=== PATIENT | male | born 1970 | race Caucasian/White ===

== ENCOUNTER 2017-10-24 07:19 | Emergency (ER) | payer MEDICARE ==
[~2017-10-24] VITALS: Ht 180.3 cm; Wt 70.0 kg
[2017-10-24 09:20] VITALS: BP 137/97
== END 2017-10-24 09:24 | disposition home or self-care (01) ==
LOC: ER 07:20
DX: Z20.2 Contact with and (suspected) exposure to infections with a predominantly sexual mode of transmission (principal); F17.200 Nicotine dependence, unspecified, uncomplicated; Z88.0 Allergy status to penicillin
CPT/HCPCS: 99281

== ENCOUNTER 2019-10-27 16:50 | Emergency (ER) | payer MEDICARE, MEDICAID ==
[~2019-10-27] VITALS: Ht 180.3 cm; Wt 86.4 kg
[2019-10-27 17:32] VITALS: BP 138/89
--- NOTE | 2019-10-27 17:56 | NUR ---
c/o right collar bone pain
[2019-10-27] MEDS ORDERED: LIDOcaine 5% patch TP STA (18:29)
[2019-10-27] MEDS ORDERED: ketorolac trometh inj. 60 MG/2 ML VIAL IM STA (18:29)
[2019-10-27] MEDS ORDERED: HYDR-3965 PO (18:56)
== END 2019-10-27 19:18 | disposition home or self-care (01) ==
LOC: ER 16:51
DX: R07.89 Other chest pain (principal); M25.511 Pain in right shoulder; M54.2 Cervicalgia; Z88.0 Allergy status to penicillin
CPT/HCPCS: 71045; 73030; 96372; 99283; J1885

== ENCOUNTER 2023-09-04 10:25 | Day surgery (SDC) | payer MEDICARE, MEDICAID ==
[2023-08-28 12:03] LABS: BASOPHILS % (AUTO) 0.9 % (0-1); EOSINOPHILS # (AUTO) 0.2 X10'3 (0-0.9); EOSINOPHILS % (AUTO) 3.2 % (0-6); LYMPHOCYTES # (AUTO) 1.7 X10'3 (1.1-4.8); LYMPHOCYTES % (AUTO) 33.5 % (21-51); MEAN CORPUSCULAR HEMOGLOBIN 29.7 PG (27.0-31.0); MEAN CORPUSCULAR HGB CONC 33.5 g/dL (33.0-36.5); MEAN CORPUSCULAR VOLUME 88.4 FL (78-98); MEAN PLATELET VOLUME 7.9 FL (7.4-10.4); MONOCYTES # (AUTO) 0.6 X10'3 (0-0.9); MONOCYTES % (AUTO) 11.9 % (2-12); NEUTROPHILS # (AUTO) 2.6 X10'3 (1.8-7.7); NEUTROPHILS % (AUTO) 50.5 % (42-75); PRE OP HEMATOCRIT 38.5 % (42.0-52.0); PRE OP HEMOGLOBIN 12.9 g/dL (14.0-17.9); PRE OP PLATELET COUNT 195 X10'3 (140-440); PRE OP WHITE BLOOD COUNT 5.2 10'3 (4.8-10.8); RED BLOOD COUNT 4.35 X10'6 (4.70-6.10); RED CELL DISTRIBUTION WIDTH 13.4 % (11.5-14.5)
[2023-08-28 12:18] LABS: ALBUMIN 3.3 G/DL (3.4-5.0); ALKALINE PHOSPHATASE 62 IU/L (46-116); BLOOD UREA NITROGEN 13 MG/DL (7-18); BUN/CREATININE RATIO 15.9 (10.0-20.0); CALCIUM 8.7 MG/DL (8.5-10.1); CHLORIDE 106 MMOL/L (99-107); CREATININE 0.82 MG/DL (0.60-1.10); PRE OP ALT 23 U/L (30-65); PRE OP ANION GAP 9 (8-16); PRE OP AST 22 U/L (10-37); PRE OP BILIRUB, TOTAL 0.5 MG/DL (0.0-1.0); PRE OP GLUCOSE 88 MG/DL (70-104); PRE OP SODIUM 140 MMOL/L (135-145); TOTAL CARBON DIOXIDE 24.6 MMOL/L (24-32); TOTAL PROTEIN 6.5 G/DL (6.4-8.2); eGFR > 90 ML/MIN
[2023-09-04] VITALS (12 sets, daily range): BP systolic 122–137; BP diastolic 78–89; PULSE 71–86; RESP 9–16; TEMP 98.7; O2SAT 93–98
[~2023-09-04] VITALS: Ht 180.3 cm; Wt 83.0 kg
[~2023-09-04 10:25] MED LIST: METH-806 PO; clindamycin-Cleocin 900mg/D5W 50 ML IV ONE; famotidine 20mg tablet PO ONE; ringers solution, lacted 1,000 ML IV SCH
[2023-09-04] MEDS ORDERED: midazolam 1 mg/ML 2ml injection ONE (13:17)
[2023-09-04] MEDS ORDERED: fentaNYL/PF 50MCG/1 ML 2ML syringe ONE (13:17)
[2023-09-04] MEDS ORDERED: BUPIVAcaine/PF 2.5mg/ml (0.25%) 10ml vial ONE ×2 (13:33→13:55)
[2023-09-04] MEDS ORDERED: LIDOcaine 1% (10mg/ml)w/preservative inj. 20ml MDV ONE (13:33)
[2023-09-04] MEDS ORDERED: sevoflurane 250ml liquid IH ONE (13:35)
[2023-09-04] MEDS ORDERED: ondansetron/PF 4mg/2ml inj ONE (13:35)
[2023-09-04] MEDS ORDERED: ketorolac trometh. 30mg/ml inj. ONE (13:35)
[2023-09-04] MEDS ORDERED: glycopyrrolate 0.2mg/ml inj ONE (13:35)
[2023-09-04] MEDS ORDERED: neostigmine methylsulfate 1 MG/ML 10ml vial ONE (13:35)
[2023-09-04] MEDS ORDERED: LIDOcaine 1% 30ml preserv. free vial ONE (13:52)
[2023-09-04] MEDS ORDERED: dexamethasone sod phosphate 4mg/ml inj. ONE (13:59)
[2023-09-04] MEDS ORDERED: propofol inj 20 ML IV ONE (13:59)
[2023-09-04] MEDS ORDERED: LIDOcaine 2% jelly 6ml syringe ***for topical use only ONE (14:00)
[2023-09-04] MEDS ORDERED: rocuronium 10mg/ml inj IV ONE (14:00)
[2023-09-04] MEDS ORDERED: LIDOcaine 1%/PF 5ML 10 MG/ML VIAL ONE (14:00)
[2023-09-04] MEDS ORDERED: ringers solution, lacted 1,000 ML IV SCH ×2 (14:20)
[2023-09-04] MEDS ORDERED: morphine 4 MG/ML inj SYRINge IV PRN ×2 (14:20)
[2023-09-04] MEDS ORDERED: meperidine/PF 25mg/ml syringe IV PRN ×6 (14:20)
[2023-09-04] MEDS ORDERED: morphine 2 MG/ML inj. syringe IV PRN ×2 (14:20)
[2023-09-04] MEDS ORDERED: morphine 4 MG/ML inj SYRINge IV ONE (14:20)
[2023-09-04] MEDS ORDERED: ondansetron/PF 4mg/2ml inj IV PRN ×2 (14:20)
[2023-09-04] MEDS ORDERED: proCHLORperazine 10 MG/2 ml inj IV PRN ×2 (14:20)
--- NOTE | 2023-09-04 15:48 | NUR ---
Received from OR via [facility] IN STABLE CONDITION , accompanied by Anesthesiologist and SOCIAL PSYCHOLOGIST report given by SOCIAL PSYCHOLOGIST AND Anesthesiolgist. Addendum: 09/04/23 at 1644 by Alessandra Ulloa RN Amended: Links added.
[2023-09-04] MEDS ORDERED: oxyCODONE/APAP 5-325mg tablet PO PRN (16:00)
[2023-09-04] MEDS ORDERED: acetaminophen 1,000mg/100ml IV 100 ML IV STA ×2 (16:38→17:12)
--- NOTE | 2023-09-04 19:38 | NUR ---
PATIENT DISCHARGED FROM PACU IN STABLE CONDITION AFTER WRITTEN AND VERBAL DISCHARGE INSTRUCTIONS GIVEN PATIENT GAVE VERBAL UNDERSTANDING OF INSTRUCTIONS GIVEN. PATIENT LEFT FACILITY VIA WHEELCHAIR WITH RN. Addendum: 09/04/23 at 1944 by Alessandra Ulloa RN Amended: Links added.
== END 2023-09-04 19:38 | disposition home or self-care (01) ==
LOC: PAS 10:25
PROVIDERS: ATTEND Surgery
DX: K40.90 Unilateral inguinal hernia, without obstruction or gangrene, not specified as recurrent (principal); K42.9 Umbilical hernia without obstruction or gangrene; J44.9 Chronic obstructive pulmonary disease, unspecified; F17.210 Nicotine dependence, cigarettes, uncomplicated; F32.A Depression, unspecified; F41.9 Anxiety disorder, unspecified; Z98.890 Other specified postprocedural states; F11.10 Opioid abuse, uncomplicated; Z88.0 Allergy status to penicillin; Z79.899 Other long term (current) drug therapy; Z91.030 Bee allergy status; Z82.49 Family history of ischemic heart disease and other diseases of the circulatory system; Z82.3 Family history of stroke; Z82.61 Family history of arthritis
CPT/HCPCS: 36415; 49591; 49650; 80053; 82948; 85025; 93005; C1781; J1100; J1885; J2175; J2250; J2270; J2405; J2704; J2710; J3010; J3490; J7030; J7120; Z7506; Z7508; Z7512; A4215; A4615; A4618

== ENCOUNTER 2025-01-27 10:31 | Day surgery (SDC) | payer MEDICARE, MEDICAID ==
[~2025-01-27] VITALS: Ht 180.3 cm; Wt 87.7 kg
[2025-01-27] VITALS (15 sets, daily range): BP systolic 108–132; BP diastolic 66–87; PULSE 66–97; RESP 9–16; TEMP 97.7–97.9; O2SAT 92–100
[~2025-01-27 10:31] MED LIST changes: +ALBU8HFA INH; +FINA5TAB11 PO; +PRAZ5CAP2 PO; +albuterol 2.5 MG/3 ML nebule NEB PRN; -clindamycin-Cleocin 900mg/D5W 50 ML IV ONE; -famotidine 20mg tablet PO ONE; -ringers solution, lacted 1,000 ML IV SCH
[2025-01-27] MEDS: ringers solution, lacted 1,000 ML IV SCH (11:51)
[2025-01-27] MEDS: clindamycin-Cleocin 900mg/D5W 50 ML IV ONE (11:51)
[2025-01-27] MEDS: famotidine 20mg tablet PO ONE (11:51)
[2025-01-27 12:03] LABS: BASOPHILS % (AUTO) 0.6 % (0-1); EOSINOPHILS # (AUTO) 0.1 X10'3 (0-0.9); EOSINOPHILS % (AUTO) 1.3 % (0-6); LYMPHOCYTES # (AUTO) 0.9 X10'3 (1.1-4.8); LYMPHOCYTES % (AUTO) 10.6 % (21-51); MEAN CORPUSCULAR HGB CONC 33.1 g/dL (33.0-36.5); MEAN CORPUSCULAR VOLUME 87.5 FL (78-98); MEAN PLATELET VOLUME 8.3 FL (7.4-10.4); MONOCYTES # (AUTO) 0.9 X10'3 (0-0.9); NEUTROPHILS # (AUTO) 6.6 X10'3 (1.8-7.7); NEUTROPHILS % (AUTO) 77.5 % (42-75); PRE OP HEMATOCRIT 38.4 % (42.0-52.0); PRE OP HEMOGLOBIN 12.7 g/dL (14.0-17.9); PRE OP PLATELET COUNT 184 X10'3 (140-440); PRE OP WHITE BLOOD COUNT 8.6 10'3 (4.8-10.8); RED BLOOD COUNT 4.39 X10'6 (4.70-6.10); RED CELL DISTRIBUTION WIDTH 13.8 % (11.5-14.5)
[2025-01-27 12:55] LABS: ALBUMIN/GLOBULIN RATIO 0.9 (1.1-1.5); ALKALINE PHOSPHATASE 61 IU/L (46-116); BLOOD UREA NITROGEN 13 MG/DL (7-18); BUN/CREATININE RATIO 19.7 (10.0-20.0); CALCIUM 8.2 MG/DL (8.5-10.1); CHLORIDE 106 MMOL/L (99-107); CREATININE 0.66 MG/DL (0.60-1.10); PRE OP ALT 31 U/L (30-65); PRE OP ANION GAP 5 (8-16); PRE OP AST 16 U/L (10-37); PRE OP BILIRUB, TOTAL 0.5 MG/DL (0.0-1.0); PRE OP GLUCOSE 89 MG/DL (70-104); PRE OP POTASSIUM 3.9 MMOL/L (3.4-5.1); PRE OP SODIUM 139 MMOL/L (135-145); TOTAL CARBON DIOXIDE 27.8 MMOL/L (24-32); TOTAL PROTEIN 6.2 G/DL (6.4-8.2); eCRCL 135 ML/MIN; eGFR > 90 ML/MIN
[2025-01-27] MEDS ORDERED: LIDOcaine 1% 30ml preserv. free vial ONE (13:34)
[2025-01-27] MEDS ORDERED: BUPIVAcaine 2.5mg/ml inj 50ml vial (contains preservative) ONE (13:34)
[2025-01-27] MEDS ORDERED: sevoflurane 250ml liquid IH ONE (13:44)
[2025-01-27] MEDS ORDERED: propofol inj 20 ML IV ONE (13:49)
[2025-01-27] MEDS ORDERED: rocuronium 10mg/ml inj IV ONE (13:49)
[2025-01-27] MEDS ORDERED: fentaNYL /PF 50mcg/ml 5ml ampule ONE (13:49)
[2025-01-27] MEDS ORDERED: midazolam 1 mg/ML 2ml injection ONE (13:49)
[2025-01-27] MEDS: BUPIVAcaine/PF 2.5 mg/ml (0.25%) 30ml vial IJ ONE (14:10)
[2025-01-27] MEDS ORDERED: HYDROmorphone/PF 0.2 MG/ML SYRINGE IV PRN ×2 (15:00)
[2025-01-27] MEDS ORDERED: labetalol 20mg/4ml (5mg/ml) syringe IV PRN (15:00)
[2025-01-27] MEDS ORDERED: morphine 4 MG/ML inj SYRINge IV PRN (15:00)
[2025-01-27] MEDS ORDERED: morphine 2 MG/ML inj. syringe IV PRN (15:00)
[2025-01-27] MEDS ORDERED: ondansetron/PF 4mg/2ml inj IV PRN (15:00)
[2025-01-27] MEDS ORDERED: meperidine/PF 25mg/ml syringe IV PRN (15:00)
[2025-01-27] MEDS ORDERED: ringers solution, lacted 1,000 ML IV SCH (15:00)
[2025-01-27] MEDS ORDERED: dexamethasone sod phosphate 4mg/ml inj. ONE (15:15)
[2025-01-27] MEDS ORDERED: glycopyrrolate 0.2mg/ml inj ONE (15:20)
[2025-01-27] MEDS ORDERED: neostigmine methylsulfate 1 MG/ML 10ml vial ONE (15:20)
[2025-01-27] MEDS ORDERED: ondansetron/PF 4mg/2ml inj ONE (15:20)
[2025-01-27] MEDS: acetaminophen 1,000mg/100ml IV 100 ML IV PRN (16:33)
[2025-01-27] MEDS: ketorolac trometh 30MG/ML vial 30 MG/ML VIAL IV ONE (17:08)
[2025-01-27] MEDS: HYDROcodone/acetaminophen 5mg/325mg tablet PO PRN (17:17)
== END 2025-01-27 18:04 | disposition home or self-care (01) ==
LOC: PRE-OP 10:31
PROVIDERS: ATTEND Surgery
DX: K40.90 Unilateral inguinal hernia, without obstruction or gangrene, not specified as recurrent (principal); K42.9 Umbilical hernia without obstruction or gangrene; K66.0 Peritoneal adhesions (postprocedural) (postinfection); J44.9 Chronic obstructive pulmonary disease, unspecified; Z87.891 Personal history of nicotine dependence; Z98.890 Other specified postprocedural states; Z88.8 Allergy status to other drugs, medicaments and biological substances; Z88.0 Allergy status to penicillin
CPT/HCPCS: 36415; 49613; 49650; 80053; 82948; 85025; 93005; A4215; A4618; C1781; J0131; J1100; J1885; J2003; J2250; J2405; J2704; J2710; J3010; J3490; J7030; J7120; Z7506; Z7508; Z7512; Z7610

== ENCOUNTER 2025-03-25 11:18 | Inpatient (IN) | payer MEDICARE, MEDICAID ==
[2025-03-25] VITALS (11 sets, daily range): BP systolic 101–112; BP diastolic 43–54; PULSE 55–75; RESP 14–18; TEMP 97.8–98.3; O2SAT 92–98
[~2025-03-25] VITALS: Ht 180.3 cm; Wt 81.8 kg
[~2025-03-25 11:18] MED LIST changes: -albuterol 2.5 MG/3 ML nebule NEB PRN
--- NOTE | 2025-03-25 11:35 | Physician Documentation ---
History of Present Illness General Chief Complaint: Asthma Stated Complaint: ASTHMA/DIFF BREATHING Time Seen by MD: 11:24 Primary Medical Doctor: [facility] History of Present Illness Initial Comments 54-year-old male presents to the emergency department with complaint of shortness a breath has been worsening over 5-6 weeks. He has has had some pr oductive sputum yet no color to it. Denies fevers, myalgias or arthralgias. Denies recent other illness or known ill contacts recent travels or hospitalizations. Reports he has been using his nebulizer without resolution of his symptoms. No night sweats no hemoptysis no unintentional weight loss. Patient was a 25 year smoker one pack a day. Medication Reconciliation Allergies: Coded Allergies: Penicillins (Verified Allergy, Unknown, 10/24/17) Scheduled Finasteride (PROSCAR tablet), 1 TAB PO BID, (Reported) Methadone Hcl (Methadone Hcl), 129 MG PO DAILY, (Reported) Prazosin HCl (Prazosin HCl), 2 MG PO HS, (Reported) Scheduled PRN albuterol inhaler (Pro-Air Inhaler), 2 PUFFS INH Q4HPRN PRN for wheezing, (Reported) Past Medical History Past Medical History: No Pertinent History Past Surgical History: noncontributory Alcohol Use: None Drug Use: none Lives with: Spouse Lives In: Home Review of Systems All Other Systems at this time: Reviewed and Negative Constitutional: Denies: fever, chills, diaphoresis RESP: Reports: short of breath, cough; Denies: sputum, orthopnea CV: Denies: chest pain, palpitations, edema Physical Exam Physical Exam Vital Signs: RN Vital Signs have been reviewed: Yes, Temperature: 97.9, Source: Temporal, Heart Rate: 65, Respiratory Rate: 18, BP: 108/92, Pulse Oximetry: 95, Weight: 81.820 Oxygen Flow Rate: 0 General Appearance: alert, WD/WN, mild distress Head: normal inspection Face: normal inspection Pupils/EOM/Fundus: PERRLA Neck: full range of motion, normal inspection, trachea midline Respiratory: decreased breath sounds, respiratory distress, wheezing Chest: accessory muscle use Cardiovascular: normal peripheral pulses Back: normal inspection Extremities: normal range of motion Neurologic: oriented x4 Motor / Sensory: no motor deficit, no sensory deficit Psychiatric: normal mood/affect Skin: normal color, warm/dry; No: rash Progress Results/Orders Results/Orders Orders - NINO TREVIZO PAC Cont Nebulizer Treatment (03/25/25 11:33) Albuterol 2.5mg/3ml Nebule (Proventil 2. (03/25/25 11:35) Chest,Single View (03/25/25 11:36) Albuterol 2.5mg/3ml Nebule (Proventil 2. (03/25/25 13:15) Hospitalist Icu Consultation (03/25/25 13:20) Fill Out Med Reconciliation (03/25/25 13:20) Completed Orders - NINO TREVIZO Chest,Single View (03/25/25 11:36) Prednisone Tablet (Prednisone Tablet) (03/25/25 12:20) Azithromycin Tablet (Zithromax Tablet) (03/25/25 12:20) * Rt Notification Q1H (03/25/25 13:14) Methylprednisolone Sod Succ (Solumedrol (03/25/25 13:15) Magnesium Sulf-Water 2g/50ml (Magnesium (03/25/25 13:15) Cbc/Diff (03/25/25 13:16) CMP (03/25/25 13:16) Vital Signs 03/25/25 03/25/25 03/25/25 03/25/25 11:21 11:49 13:15 13:29 Temp 97.9 97.9 Pulse 65 64 61 Resp 18 18 15 B/P (MAP) 108/92 103/54 (70) Pulse Ox 95 98 94 O2 Flow Rate 0 0 03/25/25 03/25/25 03/25/25 13:29 13:35 13:40 Pulse 55 56 Resp 15 14 15 B/P (MAP) Pulse Ox 94 95 Laboratory Tests Test 03/25/25 13:39 White Blood Count 5.1 Red Blood Count 4.06 L Hemoglobin 11.7 L Hematocrit 35.1 L Mean Corpuscular Volume 86.4 Mean Corpuscular Hemoglobin 28.8 Mean Corpuscular Hemoglobin Concent 33.3 Red Cell Distribution Width 14.0 Platelet Count 158 Mean Platelet Volume 8.9 Neutrophils (%) (Auto) 53.5 Lymphocytes (%) (Auto) 29.3 Monocytes (%) (Auto) 11.2 Eosinophils (%) (Auto) 5.1 Basophils (%) (Auto) 0.9 Neutrophils # (Auto) 2.7 Lymphocytes # (Auto) 1.5 Monocytes # (Auto) 0.6 Eosinophils # (Auto) 0.3 Basophils # (Auto) 0.0 CBC Comment Sodium Level 146 H Potassium Level 3.5 Chloride Level 109 H Carbon Dioxide Level 28.5 Anion Gap 9 Blood Urea Nitrogen 19 H Creatinine 0.73 Estimated GFR/1.73 m2 > 90 BUN/Creatinine Ratio 26.0 H Glucose Level 105 H Calcium Level 8.0 L Total Bilirubin 0.3 Aspartate Amino Transf (AST/SGOT) 21 Alanine Aminotransferase (ALT/SGPT) 30 Alkaline Phosphatase 61 Total Protein 6.0 L Albumin 2.9 L Globulin 3.1 Albumin/Globulin Ratio 0.9 L Chemistry Comments Medical Decision Making Differential Diagnosis Examination history consistent with exacerbation of reactive airway disease/likely COPD. Can not exclude probabilities of pulmonary mass or nodules or effusions we will obtain chest x-ray. Patient will be placed on continuous neb for 1 hour provided p.o. prednisone. Interval reassessment patient feels better on continued neb. preliminary screening of chest x-ray shows no obvious infiltrate, effusion tumor mass. Interval reassessment. Patient ambulating on room air and desats to 89-90. Decision time to admit at 1:[address] on 2nd hour continuous neb, IV Solu-Medrol and 2 g of magnesium. We will consult hospitalist for admission for COPD/reactive airway disease exacerbation. Departure Disposition: ADMITTED INPATIENT Admitted to Inpatient Unit: to hospitalist Impression: Primary Impression: COPD with exacerbation Additional Impressions: Hypoxia Smoker Condition: Improved Referrals: NO PRIMARY CARE PROVIDER (PCP) Signature Scribe Signature: . Attestation: . NINO TREVIZO PAC Mar 25, 2025 11:35
[2025-03-25] MEDS: ipratropium/albuterol 3ml nebule NEB ONE (11:48)
[2025-03-25] MEDS: albuterol 2.5 MG/3 ML nebule CONTNEB PRN ×2 (11:48→13:39)
[2025-03-25] MEDS: predniSONE 20 mg tablet PO ONE (12:41)
[2025-03-25] MEDS: azithromycin 250mg tablet PO ONE (12:42)
[2025-03-25] MEDS: methylPREDNISolone sod succ 125mg/2ml vial IV ONE (14:03)
[2025-03-25] MEDS: magnesium sulf-water 2g/50mL 50 ML IV ONE (14:03)
[2025-03-25] MEDS ORDERED: morphine 2 MG/ML inj. syringe IV PRN (14:10)
[2025-03-25] MEDS ORDERED: HYDROcodone/acetaminophen 5mg/325mg tablet PO PRN (14:10)
[2025-03-25] MEDS ORDERED: magnesium sulf-water 2g/50mL 50 ML IV PRN (14:10)
[2025-03-25] MEDS ORDERED: magnesium Cl slow-release 64mg tablet PO PRN (14:10)
[2025-03-25] MEDS ORDERED: ondansetron/PF 4mg/2ml inj IV PRN (14:10)
[2025-03-25] MEDS ORDERED: potassium Cl 40MEQ/1/2NS 520ml 520 ML IV PRN (14:10)
[2025-03-25] MEDS ORDERED: acetaminophen 325mg tablet PO PRN (14:10)
[2025-03-25] MEDS ORDERED: magnesium sulf-water 4G/100mL 100 ML IV PRN (14:10)
[2025-03-25] MEDS ORDERED: potassium Cl 20 mEq SR tablet PO PRN ×2 (14:10)
--- NOTE | 2025-03-25 14:10 | HISTORY AND PHYSICAL ---
History & Physical Providers to CC ~ History of Present Illness Reason for Admit\Complaint: Shortness of breath History of Present Illness 54 years old male with a history of asthma, presented to ER for evaluation of shortness of breath. Patient has a history of smoking a pack of cigarettes per day. Denies having any cough or expectoration. Denies having any chest pain palpitations orthopnea PND or ankle edema. Patient has been using nebulizer without much improvement He has been admitted for acute exacerbation of chronic asthma and probable COPD. Allergies: Coded Allergies: Penicillins (Verified Allergy, Unknown, 10/24/17) Home Medications Home Medications Active Reported Pro-Air Inhaler (Albuterol) 8.5 Gm Inhaler 2 Puffs INH Q4HPRN PRN 30 Days PROSCAR tablet (Finasteride) 5 Mg Tablet 1 Tab PO BID 30 Days Prazosin HCl 5 Mg Capsule 2 Mg PO HS Methadone Hcl 5 Mg Tablet 129 Mg PO DAILY Past Medical History Past Medical History Asthma Past Surgical History Surgical History Comment None Family History Family History: Family history was reviewed; no changes noted. Past Social History Social History Comment Smokes a pack of cigarettes per day, does not drink or do any drugs Health Maintenance Health Maintenance Not current on his immunizations ROS ROS All other systems are reviewed and are negative except for as mentioned in HPI. Exam Vitals: Vital Signs Date Time Temp Pulse Resp B/P (MAP) Pulse Ox O2 Delivery O2 Flow Rate FiO2 03/25/25 13:40 56 15 95 03/25/25 13:29 03/25/25 13:29 97.9 0 General: Awake alert cooperative in NAD HEENT: NC, AT , EOMI, sclera anicteric , conjuctiva pinkish moist oral mucosa, no rash or ulcers, Neck: Supple, no JVD Chest: Bilateral expiratory rhonchi , Cardiovascular: RRR,No murmur gallop or rub Abdomen: Soft, nontender, no organomegaly Extremities: No cyanosis clubbing or edema no cyanosis clubbing or edema Central Nervous System: Nonfocal. Moves all four extremities Musculoskeletal: No joint swelling or deformities Skin: No rash or ulcers Additional Plan 54 years old male presented to the ER for evaluation of shortness of breath. Acute exacerbation of chronic asthma: We will treat patient with IV steroids and inhaled bronchodilators. BPH: Continue prazosin and finasteride Chronic methadone use: Resume home dose once confirmed with the pharmacy. GI prophylaxis: Pepcid DVT prophylaxis: SCDs and early ambulation Code status: Patient wishes to be full code Date of Service: Mar 25, 2025 Billing Provider: MILLY BRANDON MD Common Visit Codes: 85653-[id number] INP/OBS CARE (MOD) MILLY BRANDON MD Mar 25, 2025 14:10
[2025-03-25 14:22] LABS: BASOPHILS % (AUTO) 0.9 % (0-1); EOSINOPHILS # (AUTO) 0.3 X10'3 (0-0.9); EOSINOPHILS % (AUTO) 5.1 % (0-6); HEMATOCRIT 35.1 % (42.0-52.0); HEMOGLOBIN 11.7 g/dl (14.0-17.9); LYMPHOCYTES # (AUTO) 1.5 X10'3 (1.1-4.8); LYMPHOCYTES % (AUTO) 29.3 % (21-51); MEAN CORPUSCULAR HEMOGLOBIN 28.8 PG (27.0-31.0); MEAN CORPUSCULAR HGB CONC 33.3 g/dL (33.0-36.5); MEAN CORPUSCULAR VOLUME 86.4 FL (78-98); MEAN PLATELET VOLUME 8.9 FL (7.4-10.4); MONOCYTES # (AUTO) 0.6 X10'3 (0-0.9); MONOCYTES % (AUTO) 11.2 % (2-12); NEUTROPHILS # (AUTO) 2.7 X10'3 (1.8-7.7); NEUTROPHILS % (AUTO) 53.5 % (42-75); PLATELET COUNT 158 X10'3 (140-440); RED BLOOD COUNT 4.06 X10'6 (4.70-6.10); WHITE BLOOD COUNT 5.1 X10'3 (4.5-11.0)
[2025-03-25 14:44] LABS: ALANINE AMINOTRANSFERASE 30 U/L (12-78); ALBUMIN 2.9 G/DL (3.4-5.0); ALBUMIN/GLOBULIN RATIO 0.9 (1.1-1.5); ALKALINE PHOSPHATASE 61 IU/L (46-116); ANION GAP 9 (8-16); ASPARTATE AMINO TRANSFERASE 21 U/L (10-37); BILIRUBIN,TOTAL 0.3 MG/DL (0.1-1.0); BLOOD UREA NITROGEN 19 MG/DL (7-18); CHLORIDE 109 MMOL/L (99-107); CREATININE 0.73 MG/DL (0.60-1.10); GLUCOSE 105 MG/DL (70-104); POTASSIUM 3.5 MMOL/L (3.5-5.1); SODIUM 146 MMOL/L (135-145); TOTAL CARBON DIOXIDE 28.5 MMOL/L (24-32); eCRCL 122 ML/MIN; eGFR > 90 ML/MIN
[2025-03-25] MEDS: normal saline 1000ml 1,000 ML IV SCH (15:50)
[2025-03-25] MEDS: traMADol 50MG tablet PO ONE (17:49)
--- NOTE | 2025-03-25 19:20 | RADIOLOGY REPORT ---
EXAM: XR Chest, 1 View CLINICAL INDICATION: SOB TECHNIQUE: Frontal view of the chest. COMPARISON: None FINDINGS: LUNGS AND PLEURAL SPACES: Unremarkable. No consolidation. No pneumothorax. HEART: Unremarkable. No cardiomegaly. MEDIASTINUM: Unremarkable. Normal mediastinal contour. BONES/JOINTS: Unremarkable. No acute fracture. OTHER FINDINGS: . IMPRESSION: No acute cardiopulmonary process.
[2025-03-25] MEDS: ipratropium/albuterol 3ml nebule NEB SCH (19:29)
[2025-03-25] MEDS: K and/or MAG REPLACEMENT MC SCH (19:36)
[2025-03-25] MEDS: methylPREDNISolone sod succ/PF 40mg inj. IV SCH (21:20)
[2025-03-25] MEDS: docusate sod 100mg capsule PO SCH (21:20)
[2025-03-26] VITALS (7 sets, daily range): BP systolic 97–100; BP diastolic 46–58; PULSE 60–80; RESP 16–19; TEMP 97.9–98; O2SAT 92–95
[2025-03-26 04:57] LABS: BASOPHILS % (AUTO) 0.2 % (0-1); EOSINOPHILS % (AUTO) 0.1 % (0-6); HEMATOCRIT 35.6 % (42.0-52.0); HEMOGLOBIN 11.9 g/dl (14.0-17.9); LYMPHOCYTES # (AUTO) 0.4 X10'3 (1.1-4.8); LYMPHOCYTES % (AUTO) 3.9 % (21-51); MEAN CORPUSCULAR HEMOGLOBIN 28.4 PG (27.0-31.0); MEAN CORPUSCULAR HGB CONC 33.3 g/dL (33.0-36.5); MEAN CORPUSCULAR VOLUME 85.5 FL (78-98); MEAN PLATELET VOLUME 8.4 FL (7.4-10.4); MONOCYTES # (AUTO) 0.4 X10'3 (0-0.9); MONOCYTES % (AUTO) 3.5 % (2-12); NEUTROPHILS # (AUTO) 10.4 X10'3 (1.8-7.7); NEUTROPHILS % (AUTO) 92.3 % (42-75); PLATELET COUNT 184 X10'3 (140-440); RED BLOOD COUNT 4.17 X10'6 (4.70-6.10); WHITE BLOOD COUNT 11.2 X10'3 (4.5-11.0)
[2025-03-26 05:14] LABS: ALBUMIN 3.1 G/DL (3.4-5.0); ANION GAP 11 (8-16); BLOOD UREA NITROGEN 15 MG/DL (7-18); BUN/CREATININE RATIO 19.5 (10.0-20.0); CALCIUM 8.8 MG/DL (8.5-10.1); CHLORIDE 108 MMOL/L (99-107); CREATININE 0.77 MG/DL (0.60-1.10); GLUCOSE 160 MG/DL (70-104); MAGNESIUM 2.1 MG/DL (1.5-2.4); POTASSIUM 4.1 MMOL/L (3.5-5.1); SODIUM 143 MMOL/L (135-145); TOTAL CARBON DIOXIDE 24.2 MMOL/L (24-32); eCRCL 115 ML/MIN; eGFR > 90 ML/MIN
[2025-03-26] MEDS: methylPREDNISolone sod succ/PF 40mg inj. IV SCH (07:27)
[2025-03-26] MEDS ORDERED: PRED10TA23 PO (12:48)
[2025-03-26] MEDS ORDERED: albuterol 2.5 MG/3 ML nebule NEB PRN (12:55)
[2025-03-26] MEDS: methadone 10mg tablet PO SCH (15:04)
[2025-03-26] MEDS ORDERED: finasteride 5mg tablet PO SCH (20:00)
[2025-03-26] MEDS ORDERED: prazosin 1mg capsule PO SCH (21:00)
== END 2025-03-26 15:30 | disposition home or self-care (01) | DRG 203 ==
LOC: ER 11:19 → ED HOLD 14:14 → ORTHO 4S 15:34
PROVIDERS: ADMIT Internal Medicine; ATTEND Internal Medicine
DX: J45.901 Unspecified asthma with (acute) exacerbation (principal); R09.02 Hypoxemia; F17.200 Nicotine dependence, unspecified, uncomplicated; Z88.0 Allergy status to penicillin; Z79.899 Other long term (current) drug therapy
CPT/HCPCS: 36415; 71045; 80048; 80053; 83735; 85025; 94640; 94760; 96361; 96365; 96375; 99285; G0378; J2919; J7030; J7512